=== PATIENT | male | born 1960 | race Caucasian/White ===

== ENCOUNTER 2016-11-14 11:03 | Emergency (ER) ==
[2016-11-14 11:12] VITALS: BP 160/93; TEMP 98.1; BMI 21.2
--- NOTE | 2016-11-14 11:20 | ED.PDOC ---
General ED Provider: Dr. YANICK FRY Chief Complaint: Respiratory Complaint Stated Complaint: Cough; started with congestion 1 week or so ago - that cleared up. Worried about cough - had pneumonia Oct or Nov Time Seen by Physician: 11:16 Mode of Arrival: Walk-In Information Source: Patient Nursing and Triage Documentation Reviewed and Agree: Yes Review of Systems - Review Of Systems Constitutional: Reports: No symptoms Respiratory: Reports: Cough All Other Systems: Reviewed and Negative Past Medical History - Past Medical History Previously Healthy: Yes Endocrine: Reports: None Cardiovascular: Reports: None Respiratory: Reports: None Hematological: Reports: None Gastrointestinal: Reports: None Genitourinary: Reports: None Neuro/Psych: Reports: None Musculoskeletal: Reports: None Cancer: Reports: None - Surgical History General Surgical History: Reports: None - Family History Family History: Reports: None - Social History Smoking Status: Current every day smoker, Heavy tobacco smoker Hx Substance Use: No Alcohol Screening: Occasionally Physical Exam - Physical Exam Appearance: Well-appearing Eyes: HERO, EOMI, Conjunctiva clear ENT: Oropharynx normal Neck: Supple Respiratory: Airway patent, Breath sounds clear, Breath sounds equal, Respirations nonlabored Cardiovascular: RRR, Pulses normal GI/: Soft Musculoskeletal: Normal strength, ROM intact, No edema Skin: Warm, Dry, Normal color Neurological: Sensation intact, Motor intact, Alert, Oriented Psychiatric: Affect appropriate Interpretation - Radiology Interpretation Radiology Interpretation By: Radiologist Radiology Results: No acute changes Exam Interpreted: CXR Critical Care Note - Critical Care Note Total Time (mins): 10 Course - Course Orders, Labs, Meds: Orders Category Date Time Status CHEST, 2 VIEWS PA & LAT Stat RADS 11/14/16 11:20 Completed Vital Signs: Temp Pulse Resp BP Pulse Ox 11/14/16 11:04 98.1 F 89 20 160/93 H 97 Departure - Departure Time of Disposition: 11:51 Disposition: HOME SELF-CARE Discharge Problem: Bronchitis Instructions: Acute Bronchitis (ED) Condition: Good Pt referred to PMD for follow-up: Yes Additional Instructions: Take antibiotic as prescribed; follow up with primary care provider if not better next week. Prescriptions: Doxycycline Hyclate 100 mg PO Q12HR #20 capsule Allergies/Adverse Reactions: Allergies No Known Allergies Allergy (Verified 11/14/16 11:12) Home Medications: Ambulatory Orders Doxycycline Hyclate 100 mg PO Q12HR #20 capsule 11/14/16 Disposition Discussed With: Patient (Educated re plan)
--- NOTE | 2016-11-14 11:42 | DI ---
EXAM: CHEST FRONTAL AND LATERAL VIEWS HISTORY: Cough. COMPARISON: 08/18/2016 FINDINGS: Heart size remains within normal limits. There is diffuse, chronic appearing interstitial accentuation. Lungs are hyperinflated and there is relative lucency of the lung zones suggesting e mphysema. Previously noted discoid opacity right lung base has cleared. Currently no evidence of c onsolidated pneumonia or acute infiltrate. Normal vascularity. No pleural fluid. IMPRESSION: Lungs are currently clear. A component chronic obstructive pulmonary disease is suggest ed, correlate clinically.]
== END 2016-11-14 12:03 | disposition home or self-care (01) ==
LOC: ED 11:03
DX: J20.9 Acute bronchitis, unspecified (principal); F17.210 Nicotine dependence, cigarettes, uncomplicated
CPT/HCPCS: 99282